=== PATIENT | female | born 1930 | race Caucasian/White ===

== ENCOUNTER 2017-02-27 13:30 | Emergency (ER) | payer MEDICARE, OTHER ==
[~2017-02-27] VITALS: Ht 162.6 cm; Wt 61.2 kg
[2017-02-27 16:26] VITALS: BP 118/76
== END 2017-02-27 16:30 | disposition home or self-care (01) ==
LOC: EDBD 13:30 → ER 13:30
DX: S70.02XA Contusion of left hip, initial encounter (principal); E07.89 Other specified disorders of thyroid; J45.909 Unspecified asthma, uncomplicated; Z86.73 Personal history of transient ischemic attack (TIA), and cerebral infarction without residual deficits; Z90.89 Acquired absence of other organs; W18.40XA Slipping, tripping and stumbling without falling, unspecified, initial encounter; Y93.89 Activity, other specified; Y99.8 Other external cause status; Y92.89 Other specified places as the place of occurrence of the external cause
CPT/HCPCS: 70450; 72125; 73502

== ENCOUNTER 2019-05-11 12:25 | Inpatient (IN) | payer MEDICARE, OTHER ==
[~2019-05-11] VITALS: Ht 152.4 cm; Wt 67.8 kg
[2019-05-11] MEDS ORDERED: ALBUTEROL SULF 2.5 MG/0.5ML(0.5%) NEB SOLN HHN ONE (13:15)
[2019-05-11] MEDS ORDERED: IPRATROPIUM BROM 0.5 MG/2.5ML INH SOL HHN ONE (13:15)
[2019-05-11] MEDS ORDERED: methylPREDNISolone SOD SUCC 125 MG/2 ML VL IV ONE (13:15)
[2019-05-11 13:39] LABS: Basophils # (auto) 0 uL; Basophils % (auto) 0.7 % (0.0-2.0); Eosinophils # (auto) 0.6 uL; Eosinophils % (auto) 10.8 % (0.0-7.0); Hematocrit 43.7 % (36.0-46.0); Hemoglobin 14.2 g/dL (12.2-16.2); Lymphocytes # (auto) 1.5 uL; Lymphocytes % (auto) 26.1 % (10.0-50.0); Mean Corpuscular Hemoglobin 28.4 pg (28.0-32.0); Mean Corpuscular Hgb Conc. 32.5 g/dL (32.0-36.0); Mean Corpuscular Volume 87.6 fL (80.0-100.0); Monocytes # (auto) 0.7 uL; Monocytes % (auto) 11.5 % (0.0-12.0); Neutrophils # (auto) 2.9 uL; Neutrophils % (auto) 50.9 % (37.0-80.0); Platelet Count (auto) 222 10^3/uL (140-450); Red Blood Cells 4.99 10^6/uL (4.0-5.20); Red Cell Distribution Width 16.6 % (11.8-14.3); White Blood Cell 5.7 10^3/uL (4.4-10.8)
[2019-05-11 14:04] LABS: Alanine Aminotransferase 15 U/L (13-56); Albumin 3.6 g/dL (3.4-5.0); Anion Gap 7 (5-15); Blood Urea Nitrogen 25 mg/dL (7-18); Calcium 10.7 mg/dL (8.5-10.1); Carbon Dioxide 35 mmol/L (21-32); Chloride 97 mmol/L (98-107); GFR African American 65 mL/min; GFR Non-African American 53 mL/min; Glucose 114 mg/dL (74-106); Magnesium 2.4 mg/dL (1.6-2.6); Sodium 139 mmol/L (136-145)
[2019-05-11 14:08] LABS: Alkaline Phosphatase 77 U/L (45-117); Aspartate Aminotransferase 14 U/L (15-37); Bilirubin, Total 0.3 mg/dL (0.2-1.0); Total Protein 8.3 g/dL (6.4-8.2)
[2019-05-11 14:10] LABS: Potassium 2.5 mmol/L (3.5-5.1)
[2019-05-11] MEDS ORDERED: SODIUM CHLORIDE 0.9% 1,000 ML IV SCH (14:46)
[2019-05-11] MEDS ORDERED: LACTULOSE 20Gm/30ML SOLN PO PRN (15:00)
[2019-05-11] MEDS ORDERED: NITROGLYCERIN 0.4 MG SL TAB SL PRN (15:00)
[2019-05-11] MEDS ORDERED: ONDANSETRON HCL 4 MG/2 ML VIAL IV PRN (15:00)
[2019-05-11] MEDS ORDERED: ALBUTEROL SULF 2.5 MG/0.5ML(0.5%) NEB SOLN NEB PRN (15:00)
[2019-05-11] MEDS ORDERED: ACETAMINOPHEN 500 MG TAB PO PRN (15:00)
[2019-05-11] MEDS ORDERED: OSELTAMIVIR 75 MG CAP PO ONE (15:00)
[2019-05-11] MEDS ORDERED: traMADol HCL 50 MG TAB PO PRN (15:00)
[2019-05-11] MEDS ORDERED: MORPHINE SULF INJ 2 MG/ML SYRINGE 1ML IV PRN (15:00)
[2019-05-11] MEDS: DOXYCYCLINE 100MG/250ML 250 ML IV SCH (15:24)
[2019-05-11] MEDS ORDERED: SOD CHL 0.9%/ KCL 40MEQ 1,000 ML IV ONE (15:30)
[2019-05-11] MEDS ORDERED: POTASSIUM EFFERVESENT TAB 25 MEQ PO ONE ×2 (15:30→18:00)
[2019-05-11] MEDS: POTASSIUM CHL 20MEQ/100ML 100 ML IV SCH ×3 (16:41→23:24)
--- NOTE | 2019-05-11 16:52 | NUR ---
Telemetry admit from ER JAMAR SUÁREZ admitted to Telemetry unit after SBAR received. Patient oriented to [facility] primary RN, unit, room 278b and unit policies regarding patient care and visiting hours. Patient now on continuous telemetry monitoring, tele box # 68 and telemetry reading on arrival to unit is 97. Patient placed on bedside oxygen, weighed by bedscale and encouraged to call if they need something. All questions and concerns addressed, patient verbalized understanding.
[2019-05-11 17:00] VITALS: BP 163/90
[2019-05-11] MEDS ORDERED: INFLUENZA QUAD 2019-2020 0.5ml SYRG IM ONE (17:00)
[2019-05-11] MEDS ORDERED: PNEUMOCOCCAL VACC POLYS 25 MCG/0.5 ML VIAL IM ONE ×2 (17:00→17:15)
--- NOTE | 2019-05-11 17:02 | NUR ---
Called [facility] for Influenza A and B swab. No answer, will try again later.
[2019-05-11] MEDS ORDERED: TIOT1AER IN (17:09)
[2019-05-11] MEDS ORDERED: TRAM50TA2 PO (17:09)
[2019-05-11] MEDS ORDERED: LEVO150T10 PO (17:09)
[2019-05-11] MEDS ORDERED: CLOP75TA28 PO (17:09)
[2019-05-11] MEDS ORDERED: OMEP20TA PO (17:09)
[2019-05-11] MEDS ORDERED: ALBU108A14 IN (17:09)
[2019-05-11] MEDS ORDERED: LOVA20TA4 PO (17:09)
[2019-05-11] MEDS ORDERED: ALLO100T PO (17:09)
[2019-05-11] MEDS ORDERED: POTA10TA51 PO (17:09)
[2019-05-11] MEDS ORDERED: methylPREDNISolone SOD SUCC 40 MG/ML VL IV SCH (18:00)
[2019-05-11] MEDS: IPRATROPIUM BROM 0.5 MG/2.5ML INH SOL NEB SCH (18:26)
[2019-05-11] MEDS: ALBUTEROL SULF 2.5 MG/0.5ML(0.5%) NEB SOLN NEB SCH (18:26)
[2019-05-11 18:32] VITALS: BP 163/90
--- NOTE | 2019-05-11 18:56 | NUR ---
Called [facility] for Influenza A and B swab. No answer, will try again later.
--- NOTE | 2019-05-11 18:58 | NUR ---
Called [facility] for Influenza A and B swab. Will send up now.
--- NOTE | 2019-05-11 19:13 | NUR ---
Patient pulled out IV, no infiltration noted, pressure dressing applied.
--- NOTE | 2019-05-11 19:31 | NUR ---
Influenza A & B swab sent to lab.
[2019-05-11 20:00] VITALS: BP 132/66
[2019-05-11] MEDS: methylPREDNISolone SOD SUCC 40 MG/ML VL IV SCH (21:32)
[2019-05-11 22:00] VITALS: BP 132/66
[2019-05-11] MEDS ORDERED: OSELTAMIVIR 75 MG CAP PO SCH (22:00)
--- NOTE | 2019-05-11 22:14 | NUR ---
Patient moved to room 288-b with sitter for patient safety.
[2019-05-12] MEDS: ALBUTEROL SULF 2.5 MG/0.5ML(0.5%) NEB SOLN NEB SCH ×4 (00:25→19:09)
[2019-05-12] MEDS: IPRATROPIUM BROM 0.5 MG/2.5ML INH SOL NEB SCH ×4 (00:25→19:09)
--- NOTE | 2019-05-12 01:07 | NUR ---
IV insertion IV access obtained, via clean sterile technique by inserting 22 gauge catheter at [facility] after 1 attempt. IV secured properly. No trauma to site. Patient tolerated well. IV removal IV in left hand DC'd with clean sterile technique, catheter fully intact. Pressure dressing applied to site. Patient tolerated well.
[2019-05-12] MEDS: DOXYCYCLINE 100MG/250ML 250 ML IV SCH ×2 (03:00→15:00)
[2019-05-12 05:00] VITALS: BP 151/74
--- NOTE | 2019-05-12 06:15 | NUR ---
PATIENT YELLED ALL NIGHT HELP HELP DID NOT SLEEP TRIED GETTING OUT OF BED MULTIPLE TIMES ,PATIENT KEPT ACCUSSING ME THE PIN ATTACHER JUAN LEI OF HITTING HER ANY SIMPLE TOUCH SHE WOULD YELL
--- NOTE | 2019-05-12 07:30 | NUR ---
RECEIVED REPORT FROM NIGHT NURSE. PATIENT RESTING IN BED, NO DISTRESS NOTED. SITTER AT BEDSIDE. WILL CONTINUE TO MONITOR.
[2019-05-12 09:00] VITALS: BP 110/41
[2019-05-12] MEDS ORDERED: ENOXAPARIN SOD 40 MG/0.4 ML SYRINGE SC SCH (10:00)
[2019-05-12] MEDS ORDERED: POTASSIUM CHL 20MEQ/100ML 100 ML IV SCH (10:00)
[2019-05-12] MEDS: methylPREDNISolone SOD SUCC 40 MG/ML VL IV SCH ×2 (10:02→21:44)
[2019-05-12 13:00] VITALS: BP 122/59
[2019-05-12 14:59] LABS: Urine Bacteria FEW /hpf (None Seen); Urine Blood Negative /uL (Negative); Urine Hyaline Cast FEW /lpf (0 - 2); Urine Specific Gravity 1.015 (1.001-1.035); Urine WBC 2 /hpf (0 - 5)
[2019-05-12 17:00] VITALS: BP 143/67
[2019-05-12 17:04] LABS: Lactic Acid w/Reflex 2.7 mmol/L (0.4-2.0)
--- NOTE | 2019-05-12 19:20 | NUR ---
OPENING SHIFT NOTE Assumed care of patient who is A&O x4. Currently on 2L NC with no s/s of distress/SOB. Reports 5/10 pain in bilateral feet and legs. Declines pain medication at this time. POC discussed and patient verbalized understanding. Sitter is at bedside for patient safety. Bed is in low locked position with side rails up x2. Call light is within reach. Patient encouraged to call for assistance when needed. Will continue to monitor for changes PRN.
[2019-05-12 20:00] VITALS: BP 127/54
[2019-05-13] MEDS: IPRATROPIUM BROM 0.5 MG/2.5ML INH SOL NEB SCH ×4 (00:29→18:10)
[2019-05-13] MEDS: ALBUTEROL SULF 2.5 MG/0.5ML(0.5%) NEB SOLN NEB SCH ×4 (00:29→18:10)
--- NOTE | 2019-05-13 00:50 | NUR ---
Sputum sample sent to lab.
--- NOTE | 2019-05-13 01:32 | NUR ---
IV removal IV leaking. DC'd with clean sterile technique, catheter fully intact. Pressure dressing applied to site. Patient tolerated well.
--- NOTE | 2019-05-13 01:33 | NUR ---
IV insertion IV access obtained, via clean sterile technique by inserting 20 gauge catheter at right AC after 1 attempt. IV secured properly. No trauma to site. Patient tolerated well.
[2019-05-13] MEDS: DOXYCYCLINE 100MG/250ML 250 ML IV SCH (02:40)
[2019-05-13 05:31] LABS: Hematocrit 44.9 % (36.0-46.0); Hemoglobin 14.7 g/dL (12.2-16.2); Mean Corpuscular Hemoglobin 28.2 pg (28.0-32.0); Mean Corpuscular Hgb Conc. 32.7 g/dL (32.0-36.0); Mean Corpuscular Volume 86.3 fL (80.0-100.0); Platelet Count (auto) 254 10^3/uL (140-450); White Blood Cell 13.3 10^3/uL (4.4-10.8)
[2019-05-13 05:32] LABS: Band Neutrophils % (manual) 0; Basophils % (manual) 0 (0.0-2.0); Blast Cells 0; Eosinophils % (manual) 0 (0-7); Metamyelocytes % 0; Myelocytes % 0; Promyelocytes % 0; Reactive Lymphocytes 0
[2019-05-13 05:49] LABS: Potassium 4.3 mmol/L (3.5-5.1)
[2019-05-13 05:58] LABS: Calcium 10.7 mg/dL (8.5-10.1); Magnesium 2.3 mg/dL (1.6-2.6)
[2019-05-13 06:01] LABS: Lymphocytes % (manual) 3 (10.0-50.0); Monocytes % (manual) 2 (0-12)
[2019-05-13 06:10] LABS: Cholesterol 184 mg/dL (< 200); HDL Cholesterol 67 mg/dL (40-59); LDL Cholesterol 104 mg/dL (< 100); Triglycerides 92 mg/dL (< 150)
--- NOTE | 2019-05-13 08:00 | NUR ---
OPENING SHIFT NOTE ASSUMED CARE OF PATIENT AWAKE AND ALERT. NO S/S OF DISTRESS NOTED OR COMPLAINTS OF PAIN. PATIENT UPDATED ON POC FOR THE DAY AND ALL QUESTIONS ANSWERED. BED IS IN LOWEST, LOCKED POSITION WITH SIDE RAILS UP X2 AND CALL LIGHT WITHIN REACH. WILL CONTINUE TO MONITOR Q1H AND PRN.
[2019-05-13 09:00] VITALS: BP 134/61
[2019-05-13] MEDS: ENOXAPARIN SOD 30 MG/0.3 ML SYRINGE SC SCH (09:49)
[2019-05-13] MEDS: methylPREDNISolone SOD SUCC 40 MG/ML VL IV SCH ×2 (09:49→21:18)
[2019-05-13] MEDS: CLOPIDOGREL BISULFATE 75 MG TAB PO SCH (09:50)
[2019-05-13] MEDS: PANTOPRAZOLE 40 MG TAB PO SCH (09:50)
[2019-05-13] MEDS ORDERED: AZITHROMYCIN 500MG/ 250ML 250 ML IV ONE (14:00)
[2019-05-13] MEDS ORDERED: cefTRIAXone 1GM/50ML D5W 50 ML IV ONE (14:00)
[2019-05-13] MEDS: SODIUM CHLORIDE 0.9% 1,000 ML IV SCH (14:33)
[2019-05-13 16:10] LABS: Free T3 1.69 pg/mL (2.3-4.2); Free T4 (Free Thyroxine) 1.31 ng/dL (0.89-1.76)
[2019-05-13 17:00] VITALS: BP 136/73
--- NOTE | 2019-05-13 20:00 | NUR ---
Opening Shift Note Assumed care of patient, awake and alert. No S/S of distress/SOB or pain. Instructed on POC and to call for assist PRN, will continue to monitor for changes Q1hr and PRN.
[2019-05-13 22:00] VITALS: BP 144/74
[2019-05-14] VITALS (7 sets, daily range): BP systolic 119–153; BP diastolic 79–94
[2019-05-14] MEDS: ALBUTEROL SULF 2.5 MG/0.5ML(0.5%) NEB SOLN NEB SCH ×4 (00:34→18:59)
[2019-05-14] MEDS: IPRATROPIUM BROM 0.5 MG/2.5ML INH SOL NEB SCH ×4 (00:35→18:59)
[2019-05-14 05:48] LABS: Basophils # (auto) 0 10 ^3/uL (0-0.2); Basophils % (auto) 0.1 % (0.0-2.0); Eosinophils # (auto) 0 10 ^3/uL (0-0.8); Hematocrit 43.3 % (36.0-46.0); Lymphocytes # (auto) 0.4 10 ^3/uL (0.4-5.4); Lymphocytes % (auto) 3.8 % (10.0-50.0); Mean Corpuscular Hemoglobin 28.4 pg (28.0-32.0); Mean Corpuscular Hgb Conc. 32.4 g/dL (32.0-36.0); Mean Corpuscular Volume 87.5 fL (80.0-100.0); Monocytes # (auto) 0.2 10 ^3/uL (0-1.3); Monocytes % (auto) 2.4 % (0.0-12.0); Neutrophils # (auto) 9.6 10 ^3/uL (1.6-8.6); Neutrophils % (auto) 93.7 % (37.0-80.0); Platelet Count (auto) 210 10^3/uL (140-450); Red Blood Cells 4.94 10^6/uL (4.0-5.20); Red Cell Distribution Width 16.7 % (11.8-14.3); White Blood Cell 10.3 10^3/uL (4.4-10.8)
[2019-05-14 06:12] LABS: Potassium 3.8 mmol/L (3.5-5.1)
[2019-05-14 06:18] LABS: BUN/Creatinine Ratio 27.7; Calcium 10.2 mg/dL (8.5-10.1)
[2019-05-14] MEDS: SODIUM CHLORIDE 0.9% 1,000 ML IV SCH ×2 (06:26→14:15)
--- NOTE | 2019-05-14 07:12 | NUR ---
Opening Shift Note Assumed care of patient, resting in bed with eyes closed. No S/S of distress/SOB or pain, sitter at bedside at this time. Bed is set in lowest locked position with side rails up x 2 for safety and call light is within reach, will continue to monitor for changes Q1hr and PRN.
[2019-05-14] MEDS: methylPREDNISolone SOD SUCC 40 MG/ML VL IV SCH ×2 (09:00→21:41)
[2019-05-14] MEDS: cefTRIAXone 1GM/50ML D5W 50 ML IV SCH (09:00)
[2019-05-14] MEDS: ENOXAPARIN SOD 30 MG/0.3 ML SYRINGE SC SCH (09:00)
[2019-05-14] MEDS: PANTOPRAZOLE 40 MG TAB PO SCH (09:01)
[2019-05-14] MEDS: CLOPIDOGREL BISULFATE 75 MG TAB PO SCH (09:01)
[2019-05-14] MEDS: AZITHROMYCIN 500MG/ 250ML 250 ML IV SCH (10:35)
[2019-05-14] MEDS ORDERED: IOHEXOL 350 MG/ML 100ML IJ ONE (12:39)
--- NOTE | 2019-05-14 12:40 | NUR ---
Patient off unit Taken down to radiology for CT. IV intact and patent to right forearm, flushed prior to departure. No signs/symptoms of distress noted at this time.
--- NOTE | 2019-05-14 13:15 | NUR ---
Patient returned to floor From radiology.
--- NOTE | 2019-05-14 13:30 | NUR ---
assessment Patient is a 88 year old female who was answering most questions appropriately. Per patient and granddaughter Daisy prior to admission patient lived home alone and had 24 hour caregivers. Patient is to return home on discharge and Daisy is requesting a new hospice order and would like to speak with [facility]. Patient was discharged from [facility] last January. Per Daisy she does not want to go back on with them. Patient has a rollator for home use. Patient has an advanced directive and POA. Patient and Daisy verbalized understanding and agreed to discharge plan home on hospice. Addendum: 05/14/19 at 1340 by Tena CHINCHILLA Amended: Links added.
[2019-05-14] MEDS ORDERED: ACETYLCYSTEINE 10 %(100MG/ML) SOL 4ML NEB SCH (18:00)
[2019-05-14] MEDS: ACETYLCYSTEINE 10 %(100MG/ML) SOL 4ML NEB SCH (18:59)
--- NOTE | 2019-05-14 19:06 | NUR ---
Care endorsed to NOC RN.
--- NOTE | 2019-05-14 20:00 | NUR ---
Opening Shift Note Assumed care of patient, awake and alert. No S/S of distress/SOB or pain. Instructed on POC and to call for assist PRN, will continue to monitor for changes Q1hr and PRN.Seen by Dr. Chicas, no new order,sitter at bedside.
[2019-05-14] MEDS ORDERED: TEMAZEPAM 15 MG CAP PO PRN (20:30)
[2019-05-15] MEDS: ACETYLCYSTEINE 10 %(100MG/ML) SOL 4ML NEB SCH ×3 (01:15→13:56)
[2019-05-15] MEDS: IPRATROPIUM BROM 0.5 MG/2.5ML INH SOL NEB SCH ×3 (01:15→13:56)
[2019-05-15] MEDS: ALBUTEROL SULF 2.5 MG/0.5ML(0.5%) NEB SOLN NEB SCH ×3 (01:15→13:56)
[2019-05-15 05:00] VITALS: BP 158/82
[2019-05-15 06:24] LABS: Potassium 4.7 mmol/L (3.5-5.1)
[2019-05-15 06:32] LABS: BUN/Creatinine Ratio 28.6; Calcium 9.6 mg/dL (8.5-10.1)
--- NOTE | 2019-05-15 06:34 | NUR ---
Respiratory note: AT BEDSIDE FOR MEDNEB TX. TX GIVEN VIA EZ-PAP, PT TOLERATED WELL. PT DID NOT WANT CPT AT THIS TIME. WILL ATTEMPT AGAIN AT NEXT SCHEDULED TX. NO S/S OF RESPIRATORY DISTRESS NOTED AT THIS TIME.
--- NOTE | 2019-05-15 07:06 | NUR ---
Report given to Kev Liu, resting quietly,sitter at bedside.
--- NOTE | 2019-05-15 07:07 | NUR ---
Opening Shift Note Assumed care of patient, resting in bed with eyes closed. No S/S of distress/SOB or pain, sitter at bedside. Will continue to monitor for changes Q1hr and PRN. Bed is set in lowest locked position with side rails up x 2 for safety and call light is within reach.
[2019-05-15 08:11] VITALS: BP 135/74
[2019-05-15 09:00] VITALS: BP 135/74
[2019-05-15] MEDS: ENOXAPARIN SOD 30 MG/0.3 ML SYRINGE SC SCH (09:13)
[2019-05-15] MEDS: CLOPIDOGREL BISULFATE 75 MG TAB PO SCH (09:13)
[2019-05-15] MEDS: methylPREDNISolone SOD SUCC 40 MG/ML VL IV SCH (09:13)
[2019-05-15] MEDS: PANTOPRAZOLE 40 MG TAB PO SCH (09:13)
[2019-05-15] MEDS: cefTRIAXone 1GM/50ML D5W 50 ML IV SCH (09:13)
[2019-05-15] MEDS: AZITHROMYCIN 500MG/ 250ML 250 ML IV SCH (10:13)
[2019-05-15] MEDS: SODIUM CHLORIDE 0.9% 1,000 ML IV SCH (10:13)
--- NOTE | 2019-05-15 12:01 | NUR ---
Respiratory note: UNABLE TO GIVE SCHEDULED 1200 MEDNEB TX. RADIOLOGY AT BEDSIDE FOR ULTRASOUND AT THIS TIME. WILL RETURN LATER FOR MEDNEB TX.
--- NOTE | 2019-05-15 12:18 | NUR ---
Respiratory note: AT BEDSIDE FOR MEDNEB TX. PT WANTS TO EAT LUNCH AT THIS TIME. NO S/S OF RESPIRATORY DISTRESS NOTED. WILL RETURN LATER FOR TX.
[2019-05-15 13:00] VITALS: BP 109/68
--- NOTE | 2019-05-15 13:56 | NUR ---
Respiratory note: AT BEDSIDE FOR MEDNEB TX. PT REFUSING EZ-PAP AND CPT AT THIS TIME. MEDNEB TX GIVEN VIA MASK, PT TOLERATED WELL, NO ADVERSE REACTIONS NOTED. NO S/S OF RESPIRATORY DISTRESS NOTED. SITTER AT BEDSIDE.
--- NOTE | 2019-05-15 14:16 | NUR ---
MD at bedside Dr. Chicas, updated pt on POC and discussed discharge planning. Patient verbalized understanding at this time.
[2019-05-15 14:25] VITALS: BP 109/68
--- NOTE | 2019-05-15 14:55 | NUR ---
Assessed O2 sat on room air Per , Dr. Chicas. Patient on room air O2 sat is 91%, patient able to ambulate to end of bed and back, O2 sat sustained at 91%. MD states patient is clear from pulmonary standpoint for discharge.
--- NOTE | 2019-05-15 15:21 | NUR ---
re-assessment Patients granddaughter Daisy has signed consents with [facility]. Equipment has been delivered to home. Patients caregivers will transport patient home. grievance and appeals coordinator will meet patient at home to start service. Daisy has been notified and agrees with discharge plan home on hospice. Addendum: 05/15/19 at 1523 by Tena CHINCHILLA Amended: Links added.
[2019-05-15] MEDS ORDERED: INFLUENZA QUAD 2019-2020 0.5ml SYRG IM ONE (15:35)
--- NOTE | 2019-05-15 16:30 | NUR ---
Spoke to patient's caregiver Updated caregiver, Tra, on patient's discharge plan, educated caregiver to follow up with primary care provider within one week of discharge. Caregiver verbalized understanding.
--- NOTE | 2019-05-15 16:57 | NUR ---
Discharge instructions given as ordered to patient and patient's granddaughter, Ana Luisa. Encourage to follow up with PMD as instructed. All questions and concerns addressed. Patient and family verbalized understanding. Needed vaccines given. IV removed with catheter intact, pressure dressing applied. Telemetry unit returned to ICU. Patient taken to vehicle via wheelchair with all personal belongings, accompanied by staff and family member. No distress noted at time of departure.
[2019-05-16] MEDS ORDERED: ENOXAPARIN SOD 40 MG/0.4 ML SYRINGE SC SCH (10:00)
== END 2019-05-15 16:57 | disposition hospice, home (50) | DRG 871 ==
LOC: EDBD 12:25 → ER 12:30 → TELE 12:31 → TELE-WESTW 17:10
PROVIDERS: ADMIT Internal Medicine; ATTEND Internal Medicine
DX: A41.9 Sepsis, unspecified organism (principal); J96.20 Acute and chronic respiratory failure, unspecified whether with hypoxia or hypercapnia; J69.0 Pneumonitis due to inhalation of food and vomit; N17.0 Acute kidney failure with tubular necrosis; J96.21 Acute and chronic respiratory failure with hypoxia; J44.1 Chronic obstructive pulmonary disease with (acute) exacerbation; J44.0 Chronic obstructive pulmonary disease with (acute) lower respiratory infection; I50.22 Chronic systolic (congestive) heart failure; J98.11 Atelectasis; Z99.81 Dependence on supplemental oxygen; E87.6 Hypokalemia; I25.10 Atherosclerotic heart disease of native coronary artery without angina pectoris; E03.9 Hypothyroidism, unspecified; M10.9 Gout, unspecified; Z66 Do not resuscitate; N18.3 Chronic kidney disease, stage 3 (moderate); E66.3 Overweight; E78.5 Hyperlipidemia, unspecified; J98.4 Other disorders of lung; E83.52 Hypercalcemia; F03.90 Unspecified dementia, unspecified severity, without behavioral disturbance, psychotic disturbance, mood disturbance, and anxiety; Z87.891 Personal history of nicotine dependence; Z92.3 Personal history of irradiation; Z85.3 Personal history of malignant neoplasm of breast; Z23 Encounter for immunization
CPT/HCPCS: 36415; 71045; 71275; 80048; 80053; 80061; 81001; 83605; 83735; 83880; 83970; 84132; 84436; 84439; 84443; 84481; 84484; 85007; 85025; 85027; 87040; 87070; 87077; 87186; 87205; 87804; 93005; 93306; 93971; 94640; 96365; 96375; 97110; 97116; 97530; G0378; J0696; J3480; J3490